=== PATIENT | female | born 1965 | race Caucasian/White ===

== ENCOUNTER 2022-06-03 08:52 | Emergency (ER) | payer OTHER, SELFPAY ==
[2022-06-03] VITALS (8 sets, daily range): BP systolic 151–181; BP diastolic 71–85; PULSE 53–69; RESP 13–18; TEMP 36.6; O2SAT 97–100; BMI 30.9
--- NOTE | 2022-06-03 08:55 | ED.ALLEREA ---
HPI - Allergic Reaction General Chief complaint: Skin/Abscess/Foreign Body Stated complaint: Hives, face swelling Time Seen by Provider: 06/03/22 08:54 Source: patient Mode of arrival: Ambulatory Limitations: no limitations History of Present Illness HPI narrative: This is a 57-year-old female with 1 prior episode of chronic urticaria about a decade ago who presents with itchy hive-like rash on her face, upper extremities lower extremities. Patient does not appreciated as much on her torso and back. 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 Patient states she used kinesiology tape on her knee after a day she started to notice an itchy red rash at that site which then tracked up her extremity and has spread. She denies any mucosal involvement. No swelling of the lips, tongue or airway. No chest pain or wheezing. No nausea or vomiting. No diarrhea or constipation. No urinary symptoms. She denies fevers or chills. No blistering. She has been on oral prednisone 40 mg for the past 3 days, she was seen at [facility] yesterday and received a dose of IM steroid and IM Benadryl. Patient states today seems worse than before. She states about a decade ago she had a similar episode although not as intense that lasted about 10 months. She states she was seen by dermatology she had patch testing and they adhesive on the patch she seemed to be most sensitive too. No other clear cause was found. She states she is been using [employer] diet and she has read that this can sometimes cause hives and individuals but has not really had any new food exposures, no known food allergies, she does not believe she is had any new topical exposures, denies any new detergents, soaps or other changes. Related Data Previous Rx's Medication Instructions Recorded dexamethasone 4 mg tablet See Rx Instructions .Route 06/03/22 .COMPLEX #21 tabs Allergies Allergy/AdvReac Type Severity Reaction Status Date / Time No Known Drug Allergies Allergy Verified 06/03/22 09:30 Review of Systems Review of Systems ROS Unobtainable: All systems reviewed & are unremarkable except as noted in HPI and below Patient History Social History Smoking Status: Never smoker Exam Narrative Exam Narrative: GEN: well nourished, well appearing female, alert and oriented x 3, patient appears to be in mild distress. HEENT: Atraumatic, pupils are equal round reactive to light, extraocular movements are intact, nares are clear, TMs are clear with no fluid, there is no conjunctival pallor. Throat is clear without any exudates, erythema, tonsillar enlargement or uvular deviation, no swelling of the lips, tongue, oropharynx. Patient has clear speech no stridor. No cough. HEART: Regular rate and rhythm without murmur, clicks, rubs. Pulses are equal in upper and lower extremities LUNGS:Lungs clear to auscultation, no wheezes, rales, crackles, chest moves symmetrically ABD:bowel sounds normal, soft, non-tender, no guarding, rebound, rigidity, no masses noted, no hepatosplenomegaly :No CVA tenderness MSCL: Non-tender, full range of motion, normal gait NEURO:CN 2-12 intact, sensation normal SKIN: Patient has erythematous maculopapular rash tracking from your bilateral knees and thighs. Patient also has changes bilateral upper extremities, anterior chest just below the neck, neck and face. No blisters, no vesicles. Initial Vital Signs Initial Vital Signs: Vital Signs Temperature 97.9 F 06/03/22 08:52 Pulse Rate 67 06/03/22 08:52 Respiratory Rate 18 06/03/22 08:52 Blood Pressure 181/85 H 06/03/22 08:52 Pulse Oximetry 100 06/03/22 08:52 Oxygen Delivery Method 06/03/22 08:52 Course Orders Ordered: Discontinued Medications Diphenhydramine HCl (Diphenhydramine 50 Mg/Ml Vial) 25 mg IV NOW ONE Stop: 06/03/22 09:12 Last Admin: 06/03/22 09:22 Dose: 25 mg Documented By: KETAN Famotidine (Famotidine 20 Mg/2 Ml Vial) 20 mg IV NOW MILAGROS Last Admin: 06/03/22 09:23 Dose: 20 mg Documented By: KETAN Methylprednisolone (Methylprednisolone 125 Mg/2 Ml Vial) 125 mg IV NOW ONE Stop: 06/03/22 09:12 Last Admin: 06/03/22 09:22 Dose: 125 mg Documented By: KETAN Vital Signs Vital signs: Vital Signs - 8 hr 06/03/22 08:52 06/03/22 09:00 06/03/22 09:01 Temperature 97.9 F Pulse Rate 67 69 Respiratory Rate 18 Blood Pressure 181/85 H 181/85 H Pulse Oximetry 100 100 Oxygen Delivery Method Room Air 06/03/22 09:01 06/03/22 09:30 06/03/22 09:31 Temperature Pulse Rate 64 57 L 58 L Respiratory Rate 18 Blood Pressure 167/79 H Pulse Oximetry 99 97 97 Oxygen Delivery Method 06/03/22 09:31 Temperature Pulse Rate 58 L Respiratory Rate Blood Pressure Pulse Oximetry 97 Oxygen Delivery Method MDM - Allergic Reaction MDM Narrative Medical decision making narrative: This is a 57-year-old female with diffuse erythematous maculopapular rash she believes may be related to adhesive on her leg although her rash continues to persist despite initial dose of oral steroids and an IM dose of steroids yesterday. She does note a remote history of having similar symptoms for about 10 months she never saw allergy but did see dermatology and had patch testing. No exact cause was ever found but she was extremely sensitive to the adhesive. Other than this patient is unaware of any other new exposures although it does seem to be more located in areas with sun exposure. Discharge Plan Departure Patient Disposition: Home Clinical Impression: Urticaria Instructions: DI for Hives Activity Restrictions/Additional Instructions: Please follow up with an allergy/immunology if your symptoms are persisting if it is easier/preferred you can start with Dermatology. You can call [phone] for [facility] or contact your insurance company for options. There are many different causes of hives this can sometimes be an allergic reaction, please keep track of any potential exposures, whether this is, detergents or soaps, topical ointments or creams. If this continues to persist you may need additional testing or skin biopsy. We are going to change your steroid to a slightly different kind and give you a tapering dose. You may continue with Benadryl 1-2 tablets every 6 hours for symptoms. I would also recommend taking a daily antihistamine such as Claritin once daily and Pepcid 20mg twice daily x 7 days. Prescription printed. Please return for rapidly worsening symptoms, swelling of your mouth, tongue, airway, difficulty breathing, wheezing, persistent vomiting, blistering or involvement of the mucosal skin or other new or concerning symptoms. Prescriptions: New dexamethasone 4 mg tablet See Rx Instructions .ROUTE .COMPLEX Qty: 21 0RF Rx Instructions: Take 6 tablets po x 1, take 5 tablets p.o. x1 day, then 4 tablets p.o. x1 day, than 3 tablets p.o. x1 day, then 2 tablets p.o. x1 day, then 1 tablet p.o. x1 day Visit Report Forms: Patient Portal/API
[2022-06-03] MEDS: diphenhydrAMINE 50 MG/ML VIAL 25 MG IV (09:22)
[2022-06-03] MEDS: methylPREDNISolone 125 MG/2 ML VIAL IV (09:22)
[2022-06-03] MEDS: FAMOTIDINE 20 MG/2 ML VIAL IV (09:23)
== END 2022-06-03 10:40 | disposition home or self-care (01) ==
PROVIDERS: Emergency Provider Emergency Medicine
DX: L50.9 Urticaria, unspecified (principal)
CPT/HCPCS: 36415; 96374; 96375; 99284; J1200; J2930